=== PATIENT | male | born 1945 | race Caucasian/White ===

== ENCOUNTER 2022-03-01 09:53 | Outpatient (REF) | payer MEDICARE, SELFPAY ==
--- NOTE | ~2022-03-01 | XR_ITS ---
EXAMINATION: XR CHEST CLINICAL INFORMATION: Cough. COMPARISON: 10/27/2018 chest radiographs. TECHNIQUE: 2 views of the chest were obtained. FINDINGS: Mild linear markings are again seen at the left lung base without significant change. The lungs otherwise clear. There are no pleural effusions. The heart and mediastinal structures are unremarkable. XR/XR chest 2V IMPRESSION: Mild left basilar linear atelectasis versus scarring without significant change. No acute cardiopulmonary process.
== END 2022-03-01 09:54 | disposition home or self-care (01) ==
LOC: HO.HMGCX 09:53
PROVIDERS: PCP Internal Medicine; Visit Provider Physician Assistant
DX: R05.9 Cough, unspecified (principal)
CPT/HCPCS: 71046

== ENCOUNTER 2022-05-21 12:44 | Outpatient (REF) | payer MEDICARE, SELFPAY ==
--- NOTE | ~2022-05-21 | XR_ITS ---
EXAMINATION: XR TIBIA AND FIBULA, LEFT CLINICAL INFORMATION: Leg pain COMPARISON: None TECHNIQUE: AP and lateral views of the left tibia and fibula were obtained. FINDINGS: There is no acute or healing fracture, dislocation, destructive process. Corticated ossicle is seen adjacent to tip medial malleolus. There is spurring at the patella tendon insertion proximal tibia. Hoffa's fat pad appears normal. There is metallic density, artifact or shrapnel overlying the distal femur on the lateral view measuring 1.1 x 0.8 cm. This is beyond field of view on AP projection. Clinically correlate. XR/XR tibia fibula LT 2V IMPRESSION: 1. No fracture or dislocation. 2. No destructive process. 3. Metallic density, artifact or shrapnel, overlying distal femur on lateral view measuring 1.1 x 0.8 cm.
== END 2022-05-21 12:45 | disposition home or self-care (01) ==
LOC: HO.HMGCX 12:44
PROVIDERS: PCP Internal Medicine; Visit Provider Nurse Practitioner Family
DX: M79.605 Pain in left leg (principal)
CPT/HCPCS: 73590

== ENCOUNTER 2022-05-21 14:29 | Outpatient (REF) | payer MEDICARE, SELFPAY ==
--- NOTE | ~2022-05-21 | US_ITS ---
EXAMINATION: US VENOUS ULTRASOUND WITH DOPPLER LOWER EXTREMITY, LEFT CLINICAL INFORMATION: Left lower extremity pain. Assess for occult DVT. COMPARISON: Tib-fib radiographs 05/21/2022. TECHNIQUE: Ultrasound of the deep veins is performed from the hip to the calf with compression sonography and color and pulse Doppler assessment. Spectral analysis with color-flow imaging is performed. FINDINGS: There is normal venous compression and respiratory variation and augmented flow. The visualized common femoral vein, superficial femoral vein, profunda femoral vein, popliteal vein, and the trifurcation region shows no evidence of deep venous thrombosis. No popliteal fossa cyst demonstrated. Additional real-time linear imaging distal anterior lower leg position in area of symptoms shows no edema tracking in soft tissue planes. No cystic or solid mass. US/US venous duplex LE LT IMPRESSION: No DVT demonstrated in the left lower extremity.
== END 2022-05-21 14:30 | disposition home or self-care (01) ==
LOC: HO.HMGCX 14:29
PROVIDERS: Visit Provider Nurse Practitioner Family
DX: M79.605 Pain in left leg (principal)
CPT/HCPCS: 93971

== ENCOUNTER 2022-11-10 08:17 | Outpatient (REF) | payer MEDICARE, SELFPAY ==
--- NOTE | ~2022-11-10 | US_ITS ---
EXAMINATION: US RETROPERITONEAL LIMITED (RENAL ONLY) CLINICAL INFORMATION: Renal stone, CKD IIIa, hypertension. COMPARISON: Ultrasound retroperitoneal limited (renal only) 08/22/2019 and 08/20/2018. X-ray abdomen KUB 08/02/2014 and 08/30/2014. CT abdomen and pelvis without contrast 07/03/2014. TECHNIQUE: Real-time imaging of the kidneys. FINDINGS: RIGHT KIDNEY: 13.2 x 5.6 x 6.4 cm (SAG x AP x TRV). The kidney is normal in size, contour, and echogenicity. There is a benign Bosniak class I lower pole 2.7 cm benign cyst. This needs no additional imaging or followup. No solid renal masses. No renal calculi or hydronephrosis. LEFT KIDNEY: 11.6 x 5.9 x 5.4 cm (SAG x AP x TRV). The kidney is normal in size, contour, and echogenicity. Renal cortical thickness is normal. There is a benign Bosniak class I mid kidney 2.1 cm benign cyst. This needs no additional imaging or followup. No solid renal masses. No renal calculi or hydronephrosis. US/US renal BI IMPRESSION: Negative exam. No renal calculi are seen.
== END 2022-11-10 08:18 | disposition home or self-care (01) ==
LOC: HO.HMGCX 08:17
PROVIDERS: PCP Internal Medicine; Visit Provider Internal Medicine Nephrology
DX: I12.9 Hypertensive chronic kidney disease with stage 1 through stage 4 chronic kidney disease, or unspecified chronic kidney disease (principal); N18.31 Chronic kidney disease, stage 3a; N20.0 Calculus of kidney
CPT/HCPCS: 76775

== ENCOUNTER → 2023-08-05 09:14 | Outpatient (BNVA) | payer MEDICARE, SELFPAY | PROVIDERS: PCP Internal Medicine; Visit Provider Internal Medicine Nephrology | DX: N18.31 Chronic kidney disease, stage 3a (principal); N20.0 Calculus of kidney | CPT/HCPCS: 99212 ==

== ENCOUNTER 2023-08-05 09:22 | Outpatient (AMB) | payer MEDICARE, SELFPAY ==
--- NOTE | 2023-08-05 09:24 | HO.NEPHOV_ITS ---
HPI HPI Comments History of Present Illness Details I hadd the pleasure of seeing Nabeel in follow-up of his chronic kidney disease and hypertension. His anti hypertensive medication doses have been adjusted recently by his primary care physician. He does not have any orthostatic symptoms. He denies chest pain, shortness of breath, paroxysmal nocturnal dyspnea, orthopnea, pedal edema or urinary symptoms. He is compliant with his medications. He avoids nonsteroidal anti-inflammatories and maintains good hydration. He was feeling well at the time this office visit. [facility] Medical History (Updated 08/22/23 @ 21:13 by Terrell Melgar MD) Kidney stones Hypertension CKD (chronic kidney disease) stage 3, GFR 30-59 ml/min Surgical History (Updated 08/05/23 @ 09:30 by Emma Pulliam MA) History of knee surgery Social History (Updated 08/05/23 @ 09:31 by Emma Pulliam MA) Alcohol intake: current Comment: Occasionally Patient Tobacco Use Status: Never used Tobacco Vital Signs 08/05/23 09:25 Height 5 ft 9 in Weight 236 lb BMI 34.8 BP 110/62 Blood Pressure Location Lt brachial Position Sitting Pulse 79 Pulse Source Pulse Oximeter Pulse Oximetry (%) 97 Oxygen Delivery Method Room Air Physical Exam Vital Signs: Last Vital Signs Pulse 79 08/05/23 09:25 BP 110/62 08/05/23 09:25 Pulse Ox 97 08/05/23 09:25 Oxygen Delivery Method Room Air 08/05/23 09:25 BMI result Body Mass Index 34.8 Const General: comfortable and no acute distress Orientation/consciousness: patient oriented x3 HEENT Head: Yes normocephalic Mouth: Normal oral and palatal mucosa present Eyes EOM: EOMs intact bilaterally Neck Neck: Yes supple Resp Auscultation: clear to auscultation bilaterally Cardio Jugular venous distension: no JVD Rate: regular rate GI Palpation (GI): Soft to palpation Auscultation: normal bowel sounds General: Yes no CVA tenderness Back/Spine/Pelvis Back: no CVA tenderness Skin General skin exam: no rashes or lesions noted Neuro General: patient oriented x3 and moves all extremities Extrem General: Yes no pedal edema Assessment & Plan Assessment & Plan (1) CKD (chronic kidney disease) stage 3, GFR 30-59 ml/min: Code(s): N18.30 - Chronic kidney disease, stage 3 unspecified Qualifiers: Chronic kidney disease stage 3 subtype: stage 3a (GFR 45-59) Qualified Code(s): N18.31 - Chronic kidney disease, stage 3a (2) Kidney stones: Code(s): N20.0 - Calculus of kidney Plan Nabeel has chronic kidney disease stage 3 A from vascular disease. He has no history proteinuria. He is on DIVINA-inhibitor. His blood pressure is at goal. His last 24 urine collection showed a GFR well over 60 mL/minute. His last renal ultrasound not show any nephrolithiasis. He is on hydrochlorothiazide. He may be a candidate for potassium citrate in the future. He maintains good hydration. He avoids nonsteroidal anti-inflammatories. I did not make any medication changes today. All his questions were answered. Follow-up lab work ordered and follow-up appointment given. Orders: Orders Electrolytes 08/05/23 N18.30 - Chronic kidney disease, stage 3 unspecified, N20.0 - Calculus of kidney Blood Urea Nitrogen 08/05/23 N18.30 - Chronic kidney disease, stage 3 unspecified, N20.0 - Calculus of kidney Creatinine 08/05/23 N18.30 - Chronic kidney disease, stage 3 unspecified, N20.0 - Calculus of kidney Coding Level of Care Code Est Pt Level 4 (70864) Diagnoses Stage 3a chronic kidney disease N18.31 Chronic kidney disease stage 3 subtype: stage 3a (GFR 45-59) Kidney stones N20.0 Results Reviewed Nephrology Results: Renal US 11/10/22
[2023-08-05 09:25] VITALS: BP 110/62; PULSE 79; O2SAT 97; BMI 34.8
== END 2023-08-05 10:00 | disposition home or self-care (01) ==
PROVIDERS: PCP Internal Medicine; Visit Provider Internal Medicine Nephrology
DX: N18.31 Chronic kidney disease, stage 3a (principal); N20.0 Calculus of kidney
CPT/HCPCS: 99214

== ENCOUNTER 2024-02-03 09:12 | Outpatient (AMB) | payer MEDICARE, SELFPAY ==
--- NOTE | 2024-02-03 09:22 | HO.NEPHOV_ITS ---
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 His BP has been at goal at home. He does not have any orthostatic symptoms. He denies chest pain, shortness of breath, paroxysmal noc turnal dyspnea, orthopnea, pedal edema or urinary symptoms. He is compliant with his medications. He avoids nonsteroidal anti-inflammatories and maintains good hydration. He was feeling well at the time this office visit. [facility] Medical History (Updated 02/03/24 @ 09:24 by Terrell Melgar MD) Kidney stones Hypertension CKD (chronic kidney disease) stage 3, GFR 30-59 ml/min Surgical History History of knee surgery Social History Alcohol intake: current Comment: Occasionally Patient Tobacco Use Status: Never used Tobacco Review of Systems Const All systems reviewed & are unremarkable except as noted in HPI and below Physical Exam Vital Signs: Last Vital Signs Pulse 74 02/03/24 09:32 BP 110/60 02/03/24 09:32 Pulse Ox 97 02/03/24 09:32 Oxygen Delivery Method Room Air 02/03/24 09:32 BMI result Body Mass Index 34.5 Const General: comfortable and no acute distress Orientation/consciousness: patient oriented x3 HEENT Head: Yes normocephalic Mouth: Normal oral and palatal mucosa present Eyes EOM: EOMs intact bilaterally Neck Neck: Yes supple Resp Auscultation: clear to auscultation bilaterally Cardio Jugular venous distension: no JVD Rate: regular rate GI Palpation (GI): Soft to palpation Auscultation: normal bowel sounds General: Yes no CVA tenderness Back/Spine/Pelvis Back: no CVA tenderness Skin General skin exam: no rashes or lesions noted Neuro General: patient oriented x3 and moves all extremities Extrem General: Yes no pedal edema Results Reviewed Nephrology Results: Renal US 11/10/22 Assessment & Plan Assessment & Plan (1) CKD (chronic kidney disease) stage 3, GFR 30-59 ml/min: Code(s): N18.30 - Chronic kidney disease, stage 3 unspecified Category: Medical Qualifiers: Chronic kidney disease stage 3 subtype: stage 3a (GFR 45-59) Qualified Code(s): N18.31 - Chronic kidney disease, stage 3a (2) Kidney stones: Code(s): N20.0 - Calculus of kidney Category: Medical (3) Hypertension: Code(s): I10 - Essential (primary) hypertension Category: Medical Qualifiers: Hypertension type: primary hypertension Qualified Code(s): I10 - Essential (primary) hypertension Plan Nabeel has chronic kidney disease stage 3 A from vascular disease. He has no history proteinuria. He is on DIVINA-inhibitor. His blood pressure is at goal. His last 24 urine collection showed a GFR well over 60 mL/minute. His last renal ultrasound not show any nephrolithiasis. He is on hydrochlorothiazide. He may be a candidate for potassium citrate in the future. He maintains good hydration. He avoids nonsteroidal anti-inflammatories. I did not make any medication changes today. All his questions were answered. Follow-up lab work ordered and follow-up appointment given Orders: Orders Electrolytes Today I10 - Essential (primary) hypertension, N18.31 - Chronic kidney disease, stage 3a, N20.0 - Calculus of kidney Blood Urea Nitrogen Today I10 - Essential (primary) hypertension, N18.31 - Chronic kidney disease, stage 3a, N20.0 - Calculus of kidney Creatinine Today I10 - Essential (primary) hypertension, N18.31 - Chronic kidney disease, stage 3a, N20.0 - Calculus of kidney Calcium Today I10 - Essential (primary) hypertension, N18.31 - Chronic kidney disease, stage 3a, N20.0 - Calculus of kidney Protein Creatinine Ratio, Ur Today I10 - Essential (primary) hypertension, N18.31 - Chronic kidney disease, stage 3a, N20.0 - Calculus of kidney Coding Level of Care Code Est Pt Level 4 (07869) Diagnoses Stage 3a chronic kidney disease N18.31 Chronic kidney disease stage 3 subtype: stage 3a (GFR 45-59) Kidney stones N20.0 Primary hypertension I10 Hypertension type: primary hypertension
[2024-02-03 09:32] VITALS: BP 110/60; PULSE 74; O2SAT 97; BMI 34.5
== END 2024-02-03 09:54 | disposition home or self-care (01) ==
PROVIDERS: PCP Internal Medicine; Visit Provider Internal Medicine Nephrology
DX: N18.31 Chronic kidney disease, stage 3a (principal); N20.0 Calculus of kidney; I10 Essential (primary) hypertension
CPT/HCPCS: 99214

== ENCOUNTER → 2024-02-03 09:12 | Outpatient (BNVA) | payer MEDICARE, SELFPAY | PROVIDERS: PCP Internal Medicine; Visit Provider Internal Medicine Nephrology | DX: I12.9 Hypertensive chronic kidney disease with stage 1 through stage 4 chronic kidney disease, or unspecified chronic kidney disease (principal); N18.31 Chronic kidney disease, stage 3a; N20.0 Calculus of kidney | CPT/HCPCS: 99212 ==

== ENCOUNTER 2024-12-21 12:07 | Outpatient (AMB) | payer MEDICARE, SELFPAY ==
[2024-12-21 12:24] VITALS: BP 116/70; PULSE 82; O2SAT 97; BMI 34.6
--- NOTE | 2024-12-21 12:24 | HO.NEPHOV_ITS ---
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 His BP has been at goal at home. He does not have any orthostatic symptoms. He denies chest pain, shortness of breath, paroxysmal nocturnal dyspnea, orthopnea, pedal edema or urinary symptoms. He is compliant with his medications. He avoids nonsteroidal anti-inflammatories and maintains good hydration. He was feeling well at the time this office visit. [facility] Medical History (Updated 02/03/24 @ 09:24 by Terrell Melgar MD) Kidney stones Hypertension CKD (chronic kidney disease) stage 3, GFR 30-59 ml/min Surgical History History of knee surgery Social History Alcohol intake: current Comment: Occasionally Patient Tobacco Use Status: Never used Tobacco Review of Systems Const All systems reviewed & are unremarkable except as noted in HPI and below Physical Exam Vital Signs: Last Vital Signs Pulse 82 12/21/24 12:24 BP 116/70 12/21/24 12:24 Pulse Ox 97 12/21/24 12:24 Oxygen Delivery Method Room Air 12/21/24 12:24 BMI result Body Mass Index 34.6 Const General: comfortable and no acute distress Orientation/consciousness: patient oriented x3 HEENT Head: Yes normocephalic Mouth: Normal oral and palatal mucosa present Eyes EOM: EOMs intact bilaterally Neck Neck: Yes supple Resp Auscultation: clear to auscultation bilaterally Cardio Jugular venous distension: no JVD Rate: regular rate GI Palpation (GI): Soft to palpation Auscultation: normal bowel sounds General: Yes no CVA tenderness Back/Spine/Pelvis Back: no CVA tenderness Skin General skin exam: no rashes or lesions noted Neuro General: patient oriented x3 and moves all extremities Extrem General: Yes no pedal edema Results Reviewed Nephrology Results: Renal US 11/10/22 Assessment & Plan Assessment & Plan (1) CKD (chronic kidney disease) stage 3, GFR 30-59 ml/min: Code(s): N18.30 - Chronic kidney disease, stage 3 unspecified Category: Medical Qualifiers: Chronic kidney disease stage 3 subtype: stage 3a (GFR 45-59) Qualified Code(s): N18.31 - Chronic kidney disease, stage 3a (2) Kidney stones: Code(s): N20.0 - Calculus of kidney Category: Medical (3) Hypertension: Code(s): I10 - Essential (primary) hypertension Category: Medical Qualifiers: Hypertension type: primary hypertension Qualified Code(s): I10 - Es sential (primary) hypertension Plan Nabeel has chronic kidney disease stage 3 A from vascular disease. He has no history proteinuria. He is on DIVINA-inhibitor. His blood pressure is at goal. His last 24 urine collection showed a GFR well over 60 mL/minute. His last renal ultrasound not show any nephrolithiasis. He is on hydrochlorothiazide. He may be a candidate for potassium citrate in the future. He maintains good hydration. He avoids nonsteroidal anti-inflammatories. I did not make any medication changes today. All his questions were answered. Follow-up lab work ordered and follow-up appointment given Orders: Orders Creatinine 10 Months I10 - Essential (primary) hypertension, N18.31 - Chronic kidney disease, stage 3a, N20.0 - Calculus of kidney Blood Urea Nitrogen 10 Months I10 - Essential (primary) hypertension, N18.31 - Chronic kidney disease, stage 3a, N20.0 - Calculus of kidney Protein Creatinine Ratio, Ur 10 Months I10 - Essential (primary) hypertension, N18.31 - Chronic kidney disease, stage 3a, N20.0 - Calculus of kidney Electrolytes 10 Months I10 - Essential (primary) hypertension, N18.31 - Chronic kidney disease, stage 3a, N20.0 - Calculus of kidney Calcium 10 Months I10 - Essential (primary) hypertension, N18.31 - Chronic kidney disease, stage 3a, N20.0 - Calculus of kidney Coding Level of Care Code Est Pt Level 4 (04171) Diagnoses Stage 3a chronic kidney disease N18.31 Chronic kidney disease stage 3 subtype: stage 3a (GFR 45-59) Kidney stones N20.0 Primary hypertension I10 Hypertension type: primary hypertension
--- OUTSIDE RECORDS SUMMARY | 2024-12-21 12:45 | XMS_ITS | Patient Health Record ---
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 Name Role Phone Steffany Dumont MD Primary Care Provider Daxa Scott Unavailable [phone] Reason For Referral No Information Medications Medication SIG (Take, Route, Fr equency, Duration) Notes Start Date End Date Status Lisinopril Active Hydrochloric Acid Ac tive Problems No Known Problems Plan Of Treatment Pending Test Test Name Order Date [id number] Plate 08/23/2015 [id number] Debride <25 sq cm 09/04/2015 Insurance Providers Payer Name Payer Address Payer Phone Subscriber Number Group Number Insured Name Patient Relationship to Insured Coverage Start Date Coverage End Date [employer] Medicare Open [address] [place] [address] [id number] Marshall Chavez Self - patient is the insured Medical (General) History Medical History History ICD Code High blood pressure Measles Chicken pox Surgical History Surgery Date(Month/Year) knee surgery 1968
--- OUTSIDE RECORDS SUMMARY | 2024-12-21 12:45 | XMS_ITS | Clinical Summary ---
Author Organization [facility] Address [address] [place] [address] Phone Care Team Providers Care Zanjero Name Role Phone Natalee Dumont MD Primary Care Provider [phone] Allergies No known active allergies Medications hydroCHLOROthiaz vero (HYDRODIURIL) 25 MG tablet Take 1 tablet by mouth 1 (one) time each day Taking half a pill Active simvastatin (ZOCOR) 40 MG tablet Take 1 tablet by mouth 1 (one) time each day Active hydroCHLOROthiaz vero 12.5 MG tablet Take 1 tablet by mouth 1 (one) time each day 09/11/2022 Active lisinopril 5 MG tablet Take 1 tablet by mouth 1 (one) time each day 09/11/2022 Active Active Problems Problem Noted Date Diagnosed Date Stage 3a chronic kidney disease 09/07/2020 Hypertensive heart and renal disease with (congestive) heart failure 09/07/2020 Renal stone 09/07/2020 Hypertension 09/07/2020 Family History Relation Status Comments Father Mother Social History Tobacco Use Types Packs/Day Years Used Date Smoking Tobacco: Never Smokeless Tobacco: Never Tobacco Cessation:Counseling Given: Not Answered Alcohol Use Standard Drinks/Week Comments Yes 0 (1 standard drink = 0.6 oz pure alcohol) Alcoholic Drinks/day: Occasional social drink Sex and Gender Information Value Date Recorded Sex Assigned at Not on file Legal Sex Male 4:49 PM EST Gender Identity Not on file Sexual Orientation Not on file Last Filed Vital Signs Vital Sign Reading Time Taken Comments Blood Pressure 110/72 10/29/2022 4:46 PM EDT Pulse 75 10/29/2022 4:46 PM EDT Temperature - - Respiratory Rate - - Oxygen Saturation 97% 10/02/2021 1:47 PM EDT Inhaled Oxygen Concentration - - Weight 108 kg (238 lb 3.2 oz) 10/29/2022 4:46 PM EDT Height 175.3 cm (5' 9 ) 09/02/2019 12:00 PM EDT Body Mass Index 35.18 09/02/2019 12:00 PM EDT Plan of Treatment Health Maintenance Due Date Last Done Comments Pneumococcal Vaccine: 50+ Ye ars (1 of 2 - PCV) 1966 Influenza Vaccine (#1) 2025 Hepatitis B Vaccine Aged Out No longe r eligible based on patient's age to complete this topic [id number] P[facility] ([id number]) Care Teams Zanjero Relationship Specialty Start Date End Date Natalee Dumont MD [address] [place] [address] [address] [place] [address] PCP - General 06/11/20
== END 2024-12-21 12:45 | disposition home or self-care (01) ==
LOC: HO.HKA 12:08
PROVIDERS: PCP Internal Medicine; Visit Provider Internal Medicine Nephrology
DX: N18.31 Chronic kidney disease, stage 3a (principal); N20.0 Calculus of kidney; I10 Essential (primary) hypertension
CPT/HCPCS: 99214

== ENCOUNTER → 2024-12-21 12:07 | Outpatient (BNVA) | payer MEDICARE, SELFPAY | PROVIDERS: PCP Internal Medicine; Visit Provider Internal Medicine Nephrology | DX: I12.9 Hypertensive chronic kidney disease with stage 1 through stage 4 chronic kidney disease, or unspecified chronic kidney disease (principal); N18.31 Chronic kidney disease, stage 3a; N20.0 Calculus of kidney | CPT/HCPCS: 99212 ==